=== PATIENT | female | born 1950 | race American Indian/Alaskan Native ===

== ENCOUNTER 2017-08-20 05:08 | Emergency (ER) | payer BC, MEDICARE, OTHER ==
[2017-08-20 05:21] VITALS: BP 156/92; PULSE 78; RESP 16; TEMP 97.5; O2SAT 98
[2017-08-20] MEDS ORDERED: Sodium Chloride 0.9% 1,000 ML IV STA (05:33)
--- NOTE | 2017-08-20 05:49 | ED PDOC ---
HPI: Neurologic - General Time Seen by Provider: 08/20/17 05:26 Chief Complaint (Nursing): Dizziness/Lightheaded Chief Complaint (Provider): dizziness Source: patient Exam Limitations: no limitations - History of Present Illness Timing/Duration: 4-6 hours Severity: moderate Associated Symptoms: nausea/vomiting Allergies/Adverse Reactions: Allergies Penicillins Allergy (Verified 08/20/17 05:22) SWELLING lactose Adverse Reaction (Verified 08/20/17 05:22) DIARRHEA Additional Complaint(s): Patient is a 67 yo AA female with PMHx hypothyroidism, DM who presents for dizziness for past few hours associated wiyth N/V x2. Dizziness is worse with movement and is described as a room spinning sensation. No associated CP, cough , fever, SOB. Past Medical History Reviewed: Historical Data, Nursing Documentation, Vital Signs Vital Signs: Last Vital Signs Temp 97.5 F L 08/20/17 05:18 Pulse 78 08/20/17 05:18 Resp 16 08/20/17 05:18 BP 156/92 H 08/20/17 05:18 Pulse Ox 98 08/20/17 05:18 - Medical History PMH: Diabetes, Hypothyroidism - Surgical History Other surgeries: right shoulder surgery - Family History Family History: States: No Known Family Hx - Living Arrangements Living Arrangements: With Family - Social History Current smoker - smoking cessation education provided: No Alcohol: None Drugs: Denies - Allergies Allergies/Adverse Reactions: Allergies Allergy/AdvReac Type Severity Reaction Status Date / Time Penicillins Allergy SWELLING Verified 08/20/17 05:22 lactose AdvReac DIARRHEA Verified 08/20/17 05:22 Review of Systems Gastrointestinal: Positive for: Nausea, Vomiting Neurological: Positive for: Dizziness Physical Exam - Reviewed Nursing Documentation Reviewed: Yes Vital Signs Reviewed: Yes - Physical Exam Appears: Positive for: No Acute Distress, Uncomfortable Head Exam: Positive for: ATRAUMATIC, NORMOCEPHALIC Skin: Positive for: Normal Color, Warm, Dry Eye Exam: Positive for: Normal appearance, EOMI, PERRL, Other (no nystagmus) ENT: Positive for: Normal ENT Inspection Neck: Positive for: Normal, Painless ROM, Supple Respiratory: Positive for: Normal Breath Sounds Gastrointestinal/Abdominal: Positive for: Normal Exam, Bowel Sounds, Soft. Negative for: Tenderness Extremity: Positive for: Normal ROM. Negative for: Tenderness, Pedal Edema Neurologic/Psych: Positive for: Alert, Oriented. Negative for: Motor/Sensory Deficits - Laboratory Results Result Diagrams: 08/20/17 06:00 08/20/17 06:00 - ECG O2 Sat by Pulse Oximetry: 98 Medical Decision Making Medical Decision Makin yo female with acute vertiginous dizziness Labs, EKG, Trial of IV fluids/Meclizine and Zofran ordered Labs reviewed show no clinically significant abnormalities; pt s/o to Dr Michele at 7AM pending re-eval Disposition - Clinical Impression Clinical Impression: Vertigo - Patient ED Disposition Is Patient to be Admitted: Transfer of Care - Disposition Disposition: Transfer of Care Disposition Time: 07:00 Condition: FAIR Forms: [employer] (Tajik) Patient Signed Over To: Sharifa Michele
[2017-08-20 06:13] LABS: BASO # 0.1 K/uL (0.0-0.2); BASO % 0.6 % (0.0-2.0); EOS # 0.3 K/uL (0.0-0.7); EOS % 2.1 % (0.0-4.0); HEMATOCRIT 38.5 % (34.0-47.0); LYMPH % 14.6 % (20.0-40.0); MEAN CELL VOLUME 87.9 fl (81.0-99.0); MEAN CORPUSCULAR HEMOGLOBIN 27.7 pg (27.0-31.0); MEAN CORPUSCULAR HGB CONC 31.6 g/dL (33.0-37.0); MONO # 0.7 K/uL (0.0-0.8); NEUT # 10.7 K/uL (1.8-7.0); NEUT % 77.7 % (50.0-75.0); RED CELL DISTRIBUTION WIDTH 13.6 % (11.5-14.5); WHITE BLOOD COUNT 13.8 K/uL (4.8-10.8)
[2017-08-20 06:22] LABS: ALB/GLOB RATIO 1.2 (1.0-2.1); ALKALINE PHOSPHATASE 93 U/L (38-126); ALT/SGPT 41 U/L (9-52); AST/SGOT 31 U/L (14-36); BILIRUBIN,TOTAL 0.6 mg/dl (0.2-1.3); BLOOD UREA NITROGEN 15 mg/dl (7-17); CALCIUM 9.3 mg/dL (8.4-10.2); CARBON DIOXIDE 24 mmol/L (22-30); CHLORIDE 108 mmol/L (98-107); GFR AFRICAN-AMERICAN > 60; GLUCOSE,RANDOM 139 mg/dL (65-105); SODIUM 144 mmol/l (132-148)
--- NOTE | 2017-08-20 07:24 | ED PDOC ---
- Laboratory Results Result Diagrams: 08/20/17 06:00 08/20/17 06:00 - ECG O2 Sat by Pulse Oximetry: 98 - Progress Re-evaluation Time: 08:28 Condition: Improved Medical Decision Making Medical Decision Making: Patient signed out to me by Dr. Qamar Leblanc MD pending reevaluation. Time: 09:40 Impression: -- Plan: -- Reassess Pt feels better after medication, minimal dizziness, ordered additional Meclizine 25 mg PO. Scribe Attestation: Documented by Andrew Olea acting as a scribe for Sharifa Michele MD. Provider Attestation: All medical record entries made by the Scribe were at my direction and personally dictated by me. I have reviewed the chart and agree that the record accurately reflects my personal performance of the history, physical exam, medical decision making, and the department course for this patient. I have also personally directed, reviewed, and agree with the discharge instructions and disposition. Disposition - Clinical Impression Clinical Impression: Vertigo - POA Present On Arrival: None - Disposition Referrals: Agustín Marie MD [Staff Provider] - Disposition: Routine/Home Disposition Time: 09:16 Condition: STABLE Prescriptions: Meclizine [Meclizine*] 25 mg PO Q6 PRN #20 tab PRN Reason: Dizziness Instructions: Vertigo (ED) Forms: [facility] (Chilean)
--- NOTE | 2017-08-20 08:32 | CT ---
PROCEDURE: CT HEAD WITHOUT CONTRAST. HISTORY: Vertigo COMPARISON: None available. TECHNIQUE: Axial computed tomography images were obtained through the head/brain without intravenous contrast. Radiation dose: Total exam DLP = 894 mGy-cm. This CT exam was performed using one or more of the following dose reduction techniques: Automated exposure control, adjustment of the mA and/or kV according to patient size, and/or use of iterative reconstruction technique. FINDINGS: HEMORRHAGE: No intracranial hemorrhage. BRAIN: No mass effect or edema. No atrophy or chronic microvascular ischemic changes. VENTRICLES: Unremarkable. No hydrocephalus. CALVARIUM: Unremarkable. PARANASAL SINUSES: Unremarkable as visualized. No significant inflammatory changes. MASTOID AIR CELLS: Unremarkable as visualized. No inflammatory changes. OTHER FINDINGS: None. IMPRESSION: Normal CT of the Head.
--- NOTE | 2017-08-20 08:49 | CARD ---
APPROVED REPORT EKG Measurement Heart [id number] <Conclusion> Sinus rhythm with 1st degree AV block Nonspecific T wave abnormality Prolonged QT Abnormal ECG
== END 2017-08-20 11:25 | disposition home or self-care (01) ==
LOC: H.ER 05:08
DX: R42 Dizziness and giddiness (principal); E03.9 Hypothyroidism, unspecified; E11.9 Type 2 diabetes mellitus without complications; I44.0 Atrioventricular block, first degree; Z88.0 Allergy status to penicillin
CPT/HCPCS: 70450; 80053; 82948; 84484; 85025; 93005; 96360; 99285; J2405; J7040

== ENCOUNTER 2017-10-23 09:19 | Emergency (ER) | payer OTHER, MEDICARE ==
[2017-10-23 09:28] VITALS: TEMP 97.7; BMI 29.7
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
--- NOTE | 2017-10-23 10:44 | CT ---
PROCEDURE: CT Cervical Spine without contrast HISTORY: <trauma> COMPARISON: None available. TECHNIQUE: Axial computed tomography images were obtained of the cervical spine without the use of intravenous contrast. Coronal and sagittal reformatted images were created and reviewed. Radiation dose: Total exam DLP = 502.97 mGy-cm. This CT exam was performed using one or more of the following dose reduction techniques: Automated exposure control, adjustment of the mA and/or kV according to patient size, and/or use of iterative reconstruction technique. FINDINGS: VERTEBRAE: The vertebral bodies are maintained in height. Normal vertebral alignment is maintained. There is reversal of the normal lordotic curvature of the cervical spine indicating possible muscular spasm. The atlantoaxial articulation and odontoid process are intact. DISCS/SPINAL CANAL/NEURAL FORAMINA: There is narrowing of multiple intervertebral disc space consistent with multilevel degenerative disc disease. Mild central spinal stenosis is noted at C3-4 as a result of disc bulge and bony ridge. Multilevel neural foraminal stenosis noted. PARASPINAL SOFT TISSUES: Unremarkable. OTHER FINDINGS: None. IMPRESSION: No fracture/ dislocation. Multilevel degenerative disc disease. Possible muscular spasm.
[2017-10-23 11:10] VITALS: BP 127/82; PULSE 78; RESP 19; O2SAT 99
== END 2017-10-23 11:16 | disposition home or self-care (01) ==
LOC: H.ER 09:19
DX: S13.4XXA Sprain of ligaments of cervical spine, initial encounter (principal); V43.52XA Car driver injured in collision with other type car in traffic accident, initial encounter; Y92.410 Unspecified street and highway as the place of occurrence of the external cause; E03.9 Hypothyroidism, unspecified; E11.9 Type 2 diabetes mellitus without complications; Z88.0 Allergy status to penicillin

== ENCOUNTER 2018-10-31 07:19 | Day surgery (SDC) | payer OTHER, MEDICARE ==
[2018-06-21 09:25] VITALS: BMI 29.2
[2018-10-31] MEDS ORDERED: Propofol 10 mg/ml Inj (20 ML) ONE (07:30)
[2018-10-31] MEDS ORDERED: Succinylcholine Chloride 20 mg/ml Syr (5 ml) IV ONE (07:30)
[2018-10-31] MEDS ORDERED: Midazolam 2 MG/2 ML VIAL ONE (07:30)
[2018-10-31] MEDS ORDERED: Lidocaine 4% (Laryng-O-Jet) Kit MM ONE (07:30)
[2018-10-31] MEDS ORDERED: Ropivacaine 0.5% 30ML IV ONE (07:36)
[2018-10-31] MEDS ORDERED: EPINEPHrine 1 mg/ml (1:1000) Inj ONE ×2 (08:07→08:08)
[2018-10-31 08:13] VITALS: RESP 18
[2018-10-31] MEDS ORDERED: ePHEDrine 50 mg/ml Inj ONE (10:50)
[2018-10-31] MEDS ORDERED: Sodium Chloride 0.9% 10 ML IV ONE (10:50)
[2018-10-31] MEDS ORDERED: Dexamethasone 4 mg/1 ml ONE (11:03)
[2018-10-31] MEDS ORDERED: Sevoflurane - Inhalation Anesthetic Liq (250 ml) ONE (11:19)
[2018-10-31] MEDS ORDERED: EPINEPHrine 1 mg/ml (1:1000) Inj IV ONE (11:20)
[2018-10-31] MEDS ORDERED: Lidocaine 1% w Epi 1:100,000 Inj INJ ONE ×2 (11:20)
--- NOTE | 2018-10-31 12:25 | PCM.SURG1 ---
Surgeon's Initial Post Op Note - Surgeon's Notes Surgeon: Martine Khan MD Supervisor [employer]: Alexandrea Sanford PA-C Type of Anesthesia: General Endo Pre-Operative Diagnosis: Rt shoulder RTC tear Operative Findings: see op report Post-Operative Diagnosis: same as pre-op dx Operation Performed: Rt shoulder arthroscopy, double row rotator cuff repair, subacromial decompression, biceps tenotomy Specimen/Specimens Removed: none Estimated Blood Loss: EBL {In ML}: 3 Date of Surgery/Procedure: 10/31/18 Time of Surgery/Procedure: 11:00
[2018-10-31] MEDS ORDERED: Oxycodone/Acetaminophen 5/325 mg Tab PO PRN (12:27)
[2018-10-31] MEDS ORDERED: HYDROmorphone 0.5 mg/0.5 ml ISec IVP PRN (12:32)
--- NOTE | 2018-10-31 12:35 | PCM.ANESB1 ---
Interscalene Block - Brachial Plexus Date of Procedure: 10/31/18 Anesthesiologist: Dhruv Fleming Pre-Procedure Diagnosis: Right shoulder rotator cuff tear Post-Procedure Diagnosis: Same Procedure Performed: Interscalene Block of Brachial Plexus Right - Procedure Interscalene Block of Brachial Plexus: This procedure was explained to the patient that it is for post-operative pain management. Consent was obtained after a thorough discussion with the patient regarding the benefits and possible complications of local anesthetic block of the Brachial Plexus at the Interscalene area. The patient was brought to the Operating Room and standard monitors were applied. Time out was held with the circulating nurse to confirm the correct surgery and appropriate block. After applying Oxygen by nasal cannula and administering IV Sedation, the patient's head was gently rotated away from the __RIGHT____operative shoulder and the anterior scalene groove was carefully palpated. The ultrasound transducer was then applied to the skin in the transverse plane and the brachial plexus was visualized lateral to the carotid artery and in between the anterior and middle scalene muscles. After identification,the anterior lateral portion of the neck was prepped with Chloraprep solution three times and Lidocaine 1% was injected subcutaneously for topical analgesia. At this point, a # 22 gauge Stimuplex 2 inches insulated needle was inserted into the interscalene groove and directed in a caudal and midline direction. The needle was inserted lateral to the ultrasound transducer in-plane towards the brachial plexus in a [id number] direction. Needle advancement was performed carefully under direct ultrasound visualization. Nerve stimulator was used and twitched of the affected extremity including the hand brachialis muscles, biceps and the deltoid was obtained at a current of _0.3____MA. After repeated negative aspiration,__5___cc of__0.5% ropivacaine_was injected and this was followed with __25___cc of __0.5___% __ropivacaine__. Under ultrasound guidance the local anesthetics were observed surrounding the roots of the brachial plexus. The needle was removed intact and sterile dressing was applied. The patient had stable vital signs, was conscious and in no apparent distress. The patient tolerated the interscalene block of the bracheal plexus well with stable vital signs and was prepared for subsequent surgery.
[2018-10-31] MEDS ORDERED: Lactated Ringer's 1,000 ML IV SCH (12:45)
[2018-10-31] MEDS ORDERED: Lactated Ringer's 1,000 ML IV ONE (13:30)
[2018-10-31 15:10] VITALS: O2SAT 96
[2018-10-31 17:30] VITALS: BP 138/76; PULSE 88; TEMP 97.6
--- NOTE | 2018-11-01 00:51 | OP ---
PROCEDURE DATE: 10/31/2018 ATTENDING SURGEON: Martine Khan MD LANDSCAPE CONTRACTOR: Alexandrea Sanford PA-C PREOPERATIVE DIAGNOSES: 1. Right shoulder rotator cuff tear. 2. Synovitis. 3. Impingement. POSTOPERATIVE DIAGNOSES: 1. Right shoulder extensive synovitis. 2. Type 4 SLAP tear. 3. Degenerative anterior, posterior and superior labral tears. 4. 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 5. Full-thickness supraspinatus tear. 6. Impingement. 7. Bursitis. PROCEDURES: 1. Right shoulder double-row rotator cuff repair. 2. Subacromial decompression with acromioplasty. 3. Complete synovectomy. 4. Biceps tenotomy. ANESTHESIA TYPE: General and interscalene block. EBL: 5 mL. SPECIMENS: None. COMPLICATIONS: None. Procedure 1: The patient was correctly identified in the holding area and the right shoulder was marked with the surgeon's initials. The patient was transported to the operating room and placed in the supine position and general anesthesia and regional interscalene block was used. Exam under anesthesia revealed 180 degrees of forward elevation, 70 degrees of external rotation, and 160 degrees of abduction. Stability examination revealed no instability. Procedure 2: The patient was then placed in a beach chair position utilizing the beach chair positioning device. The patient's head was stabilized and the indicated upper extremity was prepped and draped in the standard surgical fashion. The anatomic structures were outlined with a skin marker, and 1% lidocaine with epinephrine was injected into the posterior, anterior, and lateral portal areas. A #21-gauge spinal needle was placed in the glenohumeral joint from the posterior portal and 10 mL of sterile saline was injected into the glenohumeral joint. Return of fluid indicated correct needle placement into the joint. The needle was then withdrawn and a #11 blade was used to make a 1-cm incision at the posterior portal site. Next, the arthroscopic blunt trocar was inserted into the glenohumeral joint. A #21-gauge spinal needle was placed through the anterior rotator interval, and the anterior portal was made with a #11 blade after the spinal needle was withdrawn. A 7-mm cannula was then inserted after the skin incision was made and the arthroscopic probe was then used to examine the internal structures of the glenohumeral joint. With the shoulder in abducted and externally rotated position, the articular surface of the rotator cuff was visualized. The arthroscope and probe were then switched from posterior to anterior. The posterior labrum, posterior capsule, and biceps anchor reflection was then inspected with the arthroscope in the anterior portal position. Examination of the glenohumeral joint revealed: 1. Synovitis. 2. Type 4 SLAP tear. 3. Anterior, posterior and superior degenerative labral tears. 4. Grade 3 chondromalacia of glenoid and humeral head. 5. Full-thickness supraspinatus tear. Using the probe, the labrum was circumferentially assessed for tear. Tears were note at anterior, posterior and superior labrum. Using the 4.0 motorized shaver and radiofrequency probe, the torn edges of the labrum were debrided until stable rim, preventing any further propagation. The full radius shaver was used to mechanically debride loose chondral edges of the humeral head and glenoid, to a stable border. Extreme care was taken to not disrupt the adjacent chondral surface. The edge of the debrided area was probed to ensure chondral stability. Upon careful arthroscopic evaluation of biceps tendon and its anchor site at the labrum, it was noted to be highly frayed and tears not amenable to repair. Due to tissue quality and the patient's age, decision was made to proceed with biceps tenotomy. Using arthroscopic scissors, biceps tenotomy was successfully performed. The loose edges of labrum were debrided using radiofrequency probe and arthroscopic shaver. Excessive glenohumeral synovitis was cleared with a 4.0 mm full radius shaver. The hypertrophic, erythematous synovium was resected. Hemostasis was maintained with the radiofrequency device. At this point, the arthroscope was withdrawn from the glenohumeral joint and subacromial space was then entered using a blunt trocar. Gentle resistance sweeping against the coracoacromial ligament confirmed proper placement of the sheath and the arthroscope was inserted. A 1-cm incision was made at the inferolateral acromial area to create the lateral portal. Examination of the subacromial space revealed: 1. Impingement. 2. Bursitis. Visualization of the subacromial space was difficult due to excessive bursitis. A bursectomy was performed using a combination of radiofrequency device as well as a 4.0-mm full radius motorized shaver. The soft tissue on the undersurface of the acromion was debrided utilizing the 4.0-mm full radius shaver and the radiofrequency device was used for hemostasis. At this point, the coracoacromial ligament was released with the radiofrequency device and the acromial branch of the thoracoacromial artery was coagulated with the same instrument. Subacromial decompression was performed with a 4.0-mm conical david using both the medial portal and the "cutting-block" precision acromioplasty technique from the posterior portal. The undersurface of the acromion was resected to a flat, smooth surface to allow unrestricted excursion of the rotator cuff. After adequate subacromial decompression, attention was then turned to the rotator cuff tear, which was easily visualized after adequate bursectomy had been performed. An auxiliary lateral portal was placed 2 cm posterior to the original lateral portal, after a correct "-man's angle" was determined using a transdeltoid 21 gauge spinal needle. Arthroscopic soft tissue releases were performed using an elevator at the coracohumeral ligament insertion and superior glenoid to free up the rotator cuff to provide adequate excursion to support a repair to the greater tuberosity. Next, the greater tuberosity was gently debrided with a combination of the 4.0 mm straight shaver and radiofrequency device, and the bone was denuded to a bleeding surface using the 4.0-mm david. The lateral margin of the rotator cuff tear was debrided to a smooth and stable tendon surface using the 4.0-mm shaver. Two 4.5-mm Arthrex corkscrew suture anchors were placed with the proper "-man's angle" into the greater tuberosity, and a mattress suture from each anchor was passed through supraspinatus 10 mm medial to the torn edge. These anchors formed the medial row of the double row repair. The arm was abducted to 70 degrees, and the leading edge of the cuff was drawn to its proper insertion on the greater tuberosity. The #2 FiberWire mattress sutures were tied with standard arthroscopic knot tying techniques - Tushar knots and half hitches using a knot pusher. The remaining sutures were secured to the tuberosity with two 4.5-mm PushLock absorbable anchors, which were placed with standard technique into the lateral aspect of the greater tuberosity approximately 1 cm lateral to the medial row anchors. One suture strand from each knot was crossed to the diagonal PushLock anchor along with the suture strand from the corresponding anchor directly medial. This linking of the medial and lateral row formed a "suture bridge" rotator cuff repair. The ends of the remaining sutures were then cut. The shoulder was put through a passive ROM, and the rotator cuff repair was noted to be stable through a ROM of 130/50. No prominence of the suture knots or of rotator cuff tissue was noted to impinge during abduction and internal rotation. The subacromial space was then irrigated with sterile saline, and closure was instituted with sutures. A dressing was placed consisting of Xeroform, 4x4's, ABD pads, and tape. The patient was placed in a sling with an ABD pad in the axilla. The patient was then placed in a supine position and extubated without incident. The patient was transferred to the recovery room in stable condition, having tolerated the procedure well. Postoperatively, the patient will be maintained in an abduction sling, also provided with my rehab protocol, defining the restriction and sling use for 6 to 8 weeks. During this procedure, I was assisted by Alexandrea Sanford PA-C, who assisted in positioning the patient on the operating room table as well as transferring the patient from the operating room table to the recovery room stretcher. In addition, Alexandrea Sanford PA-C, assisted me during the actual operative procedure by positioning the patient's extremity to allow for easier arthroscopic access to all areas of the joint. The presence of Alexandrea Sanford PA-C, as my operative department assistant, was medically necessary to ensure the utmost safety of the patient in the pre, intra-, and postoperative periods. Martine Khan MD
== END 2018-10-31 17:40 | disposition home or self-care (01) ==
LOC: H.OPSURG 07:19
PROVIDERS: ATTEND Orthopaedic Surgery
DX: M75.121 Complete rotator cuff tear or rupture of right shoulder, not specified as traumatic (principal); M65.811 Other synovitis and tenosynovitis, right shoulder; M19.90 Unspecified osteoarthritis, unspecified site; E11.9 Type 2 diabetes mellitus without complications; E78.5 Hyperlipidemia, unspecified; I10 Essential (primary) hypertension; E03.9 Hypothyroidism, unspecified; J84.9 Interstitial pulmonary disease, unspecified; M75.41 Impingement syndrome of right shoulder
CPT/HCPCS: 29821; 29826; 29827; 29828; 82948; C1713; J0171; J1100; J2001; J2250; J2405; J2704; J3010; J7030; J7120